=== PATIENT | female | born 1945 | race Caucasian/White ===

== ENCOUNTER 2016-07-30 14:19 | Emergency (ER) | payer MEDICARE, OTHER ==
[~2016-07-30] VITALS: Wt 86.2 kg
[~2016-07-30 14:19] MED LIST: CALCIUM1 CAP PO; FERROUS SULFAT PO; LISINOPRIL10 MG PO; MULTIVITAMIN1 CTB PO; PANTOPRAZOLE40 M1 PO; SUCRALFATE1 GM PO; VITAMIN D400 IU PO
[2016-07-30] MEDS ORDERED: LOVASTATIN10 MG PO (14:59)
[2016-07-30] MEDS ORDERED: FERROUS SULFAT325 MG PO (14:59)
[2016-07-30] MEDS ORDERED: CITALOPRAM10 MG PO (15:00)
[2016-07-30] MEDS ORDERED: NATURE'S BLEND F1 MG PO (15:00)
[2016-07-30] MEDS ORDERED: CLARITIN LIQUI-10 MG PO (15:00)
[2016-07-30] MEDS ORDERED: LISINOPRIL5 MG PO (15:01)
[2016-07-30 15:10] LABS: BASO % 0.3 % (0.0-1.0); HEMATOCRIT 38.8 % (37.0-47.0); HEMOGLOBIN 12.9 g/dl (12.0-16.0); LYMPH # 0.6 10*3/uL (1.3-4.4); LYMPH % 8.1 % (27.0-41.0); MEAN CORPUSCULAR HGB 32.6 pg (27.0-31.0); MEAN CORPUSCULAR HGB CONC 33.2 g/dl (33.0-37.0); MEAN PLATELET VOLUME 10.6 fl (9.6-12.3); MONO % 12.8 % (3.0-9.0); NEUT # 5.8 10*3/uL (2.3-7.9); NEUT % 78.4 % (47.0-73.0); PLATELET COUNT AUTOMATED 310 10*3/uL (130-400); RED BLOOD COUNT 3.96 10*6/uL (4.10-5.10); RED CELL DISTRI WIDTH 13.4 % (0-14.5); WHITE BLOOD COUNT 7.4 10*3/uL (4.8-10.8)
[2016-07-30 15:26] LABS: ALBUMIN 3.7 gm/dl (3.1-4.5); ALKALINE PHOSPHATASE 72 U/L (45-117); BILIRUBIN, TOTAL 0.2 mg/dl (0.2-1.0); BUN 16 mg/dl (7-24); CARBON DIOXIDE 25 mmol/L (21-32); CHLORIDE 102 mmol/L (98-107); EST GLOM FILT AFRICAN AMERICAN > 60 ml/min; GLUCOSE 109 mg/dL (65-99); POTASSIUM 4.1 mmol/L (3.5-5.1); SGOT/AST 21 IU/L (3-35); SGPT/ALT 30 U/L (12-78); SODIUM 138 mmol/L (136-145)
[2016-07-30 16:34] LABS: BILIRUBIN NEGATIVE (NEGATIVE); BLOOD TRACE-INTACT (NEGATIVE); CLARITY CLOUDY (CLEAR); COLOR YELLOW (YELLOW); GLUCOSE NEGATIVE (NEGATIVE); KETONE 2+ (NEGATIVE); LEUKO ESTERASE 2+ (NEGATIVE); NITRITE NEGATIVE (NEGATIVE); PH 5.5 (5.0-9.0); PROTEIN TRACE (NEGATIVE); SPECIFIC GRAVITY >= 1.030 (1.005-1.030)
[2016-07-30 16:44] LABS: BACTERIA 4+; EPITHELIAL CELLS 25-30; RBC 16-20 rbc/hpf (0-2); URINE REFLEX COMMENT YES (NO); WBC TNTC wbc/hpf (0-5)
[2016-07-30] MEDS ORDERED: MACROBID100 M1 PO (16:52)
[2016-07-30] MEDS ORDERED: ZOFRAN ODT4 MG SL (16:52)
== END 2016-07-30 17:15 | disposition home or self-care (01) ==
LOC: ED 14:19
PROVIDERS: Physician Assistant
DX: N30.01 Acute cystitis with hematuria (principal); R11.2 Nausea with vomiting, unspecified; Z79.899 Other long term (current) drug therapy; Z91.018 Allergy to other foods

== ENCOUNTER → 2017-11-06 | Day surgery (SDC) | payer MEDICARE, OTHER ==
[~2017-11-06] VITALS: Ht 175.2 cm; Wt 90.7 kg
[~2017-11-06] MED LIST changes: +CITALOPRAM10 MG PO; +CLARITIN LIQUI-10 MG PO; +FERROUS SULFAT325 MG PO; +LISINOPRIL5 MG PO; +LOVASTATIN10 MG PO; +MACROBID100 M1 PO; +NATURE'S BLEND F1 MG PO; +ZOFRAN ODT4 MG SL; +ZYLOPRIM300 MG PO
--- NOTE | ~2017-11-06 | O ---
[place], [place] OPERATIVE NOTE NAME: NAKITA MITCHELL UNIT #: [id number] ROOM: DOCTOR: MANDY ALLAN MD BIRTHDATE: [birth year] DOS: 11/06/2017 HISTORY OF PRESENT ILLNESS: This is a 72-year-old patient who presented with guaiac positivity, undergoing investigation. PAST SURGICAL HISTORY: Unremarkable. FAMILY HISTORY: Brother with colonic carcinoma. ALLERGIES: ORANGES. PAST MEDICAL HISTORY: Hypertension, hypercholesterolemia, depression, anxiety. SOCIAL HISTORY: Nonsmoker, nonalcohol consumer except in social base. PROCEDURE: Today's procedure part of investigation score panendoscopy and colonoscopy. PREMEDICATION: Propofol. SCOPE: Olympus forward-viewing gastroscope Q10 video. REPORT: After putting the patient in left lateral position and application of lubricant to the scope, the scope was introduced. Thereafter, under direct visualization, I advanced through the length of esophagus without difficulty. Distal esophageal ulceration was identified. Hiatal hernia seen. Gastric pouch was entered. Gastritis noticed. Duodenal bulb, second and third part within normal limits. The patient was extubated after antral biopsy, tolerated the procedure well. IMPRESSION: Distal esophageal ulcer, hiatal hernia. PLAN AND DISCUSSION: I am going to proceed with colonoscopy. PROCEDURE: Today's procedure part of investigation is colonoscopy. PREMEDICATION: Versed and propofol. SCOPE: Olympus forwarding-viewing colonoscope 10L video. REPORT: After putting the patient in left lateral position and application of lubricant to the scope, the scope was introduced; thereafter, under direct visualization, advanced through the length of colon. Retained stool was noticed suboptimal study. Scope was gradually withdrawn from the transverse colon. The patient extubated, tolerated the procedure well. IMPRESSION: Retained stool. This is going to be addressed as outpatient and followup studies. [place], [place] OPERATIVE NOTE NAME: NAKITA MITCHELL UNIT #: [id number] ROOM: DOCTOR: MANDY ALLAN MD BIRTHDATE: [birth year] MANDY ALLAN MD CM:OPRECORD:OPERATIVE NOTE 1131 [id number] MANDY ALLAN MD 11/18/17 1252 interface
[2017-11-06 10:00] VITALS: BP 132/72
[2017-11-06 11:50] VITALS: BP 110/44
[2017-11-06 12:05] VITALS: BP 126/54
[2017-11-06 12:20] VITALS: BP 126/64
== END | disposition home or self-care (01) ==
LOC: SDC 11-02 11:45
DX: K29.50 Unspecified chronic gastritis without bleeding (principal); K44.9 Diaphragmatic hernia without obstruction or gangrene; I10 Essential (primary) hypertension; E78.00 Pure hypercholesterolemia, unspecified; J45.909 Unspecified asthma, uncomplicated; F32.9 Major depressive disorder, single episode, unspecified; F41.9 Anxiety disorder, unspecified; K22.10 Ulcer of esophagus without bleeding; Z80.0 Family history of malignant neoplasm of digestive organs; Z79.899 Other long term (current) drug therapy

== ENCOUNTER → 2019-02-25 | Outpatient (CLI) | payer MEDICARE, OTHER ==
[2019-02-25 11:03] LABS: BASO # 0.1 10*3/uL (0.0-0.1); BASO % 0.7 % (0.0-1.0); EOS # 0.1 10*3/uL (0.0-0.4); EOS % 1.3 % (1.0-4.0); HEMATOCRIT 41.8 % (37.0-47.0); HEMOGLOBIN 13.3 g/dl (12.0-16.0); LYMPH # 2.7 10*3/uL (1.3-4.4); LYMPH % 31.9 % (27.0-41.0); MEAN CELL VOLUME 104.5 fl (81.0-99.0); MEAN CORPUSCULAR HGB 33.3 pg (27.0-31.0); MEAN CORPUSCULAR HGB CONC 31.8 g/dl (33.0-37.0); MEAN PLATELET VOLUME 10.8 fl (9.6-12.3); MONO # 0.6 10*3/uL (0.1-1.0); MONO % 7.5 % (3.0-9.0); NEUT # 4.9 10*3/uL (2.3-7.9); NEUT % 58.2 % (47.0-73.0); PLATELET COUNT AUTOMATED 321 10*3/uL (130-400); RED CELL DISTRI WIDTH 13.7 % (0-14.5); WHITE BLOOD COUNT 8.5 10*3/uL (4.8-10.8)
[2019-02-25 11:24] LABS: ALBUMIN 3.7 gm/dl (3.1-4.5); ALKALINE PHOSPHATASE 72 U/L (45-117); BUN 17 mg/dl (7-24); CHLORIDE 106 mmol/L (98-107); CHOLESTEROL 183 mg/dL (<200); CREATININE 0.74 mg/dL (0.55-1.02); HDL CHOLESTEROL 73 mg/dl (40-60); LDL CHOLESTEROL 96 mg/dL (9-159); POTASSIUM 4.4 mmol/L (3.5-5.1); SGOT/AST 13 IU/L (3-35); SGPT/ALT 25 U/L (12-78); SODIUM 136 mmol/L (136-145); TOTAL PROTEIN 7.4 gm/dL (6.4-8.2); TRIGLYCERIDES 70 mg/dl (<150); VLDL CHOLESTEROL 14 mg/dL (6-40)
== END | disposition home or self-care (01) ==
LOC: LAB 10:32
PROVIDERS: Family Medicine
DX: E78.5 Hyperlipidemia, unspecified (principal); D64.9 Anemia, unspecified; I10 Essential (primary) hypertension; E55.9 Vitamin D deficiency, unspecified

== ENCOUNTER → 2019-09-21 | Outpatient (CLI) | payer MEDICARE, OTHER | END | disposition home or self-care (01) | LOC: LAB 15:59 | DX: M10.9 Gout, unspecified (principal) ==

== ENCOUNTER → 2021-07-18 | Outpatient (CLI) | payer OTHER | END | disposition home or self-care (01) | LOC: MAMMO 14:00 | PROVIDERS: ATTEND Internal Medicine | DX: Z12.31 Encounter for screening mammogram for malignant neoplasm of breast (principal) ==

== ENCOUNTER → 2022-02-14 | Outpatient (CLI) | payer OTHER | LOC: RAD 00:13 | PROVIDERS: ATTEND Internal Medicine Nephrology | DX: M85.80 Other specified disorders of bone density and structure, unspecified site (principal); M81.0 Age-related osteoporosis without current pathological fracture ==

== ENCOUNTER → 2022-08-28 | Outpatient (CLI) | payer OTHER | END | disposition home or self-care (01) | LOC: MAMMO 01:42 | PROVIDERS: ATTEND Internal Medicine Nephrology | DX: Z12.31 Encounter for screening mammogram for malignant neoplasm of breast (principal); N63.11 Unspecified lump in the right breast, upper outer quadrant ==

== ENCOUNTER → 2023-09-09 | Outpatient (CLI) | payer OTHER ==
[2023-09-09 07:15] LABS: BASO % 0.4 % (0.0-1.0); EOS # 0.1 10*3/uL (0.0-0.4); EOS % 1.3 % (1.0-4.0); HEMATOCRIT 40.5 % (37.0-47.0); LYMPH # 3.6 10*3/uL (1.3-4.4); LYMPH % 38.1 % (27.0-41.0); MEAN CELL VOLUME 103.3 fl (81.0-99.0); MEAN CORPUSCULAR HGB 32.9 pg (27.0-31.0); MEAN CORPUSCULAR HGB CONC 31.9 g/dl (33.0-37.0); MEAN PLATELET VOLUME 10.2 fl (9.6-12.3); MONO # 1.1 10*3/uL (0.1-1.0); MONO % 11.7 % (3.0-9.0); NEUT # 4.6 10*3/uL (2.3-7.9); NEUT % 48.2 % (47.0-73.0); PLATELET COUNT AUTOMATED 394 10*3/uL (130-400); RED BLOOD COUNT 3.92 10*6/uL (4.10-5.10); RED CELL DISTRI WIDTH 13.7 % (0-14.5); WHITE BLOOD COUNT 9.5 10*3/uL (4.8-10.8)
[2023-09-09 07:58] LABS: ALKALINE PHOSPHATASE 77 U/L (46-116); BUN 17 mg/dl (9-23); CHLORIDE 103 mmol/L (98-107); CHOLESTEROL 172 mg/dL (<200); FREE T4 0.99 ng/dl (0.89-1.76); LDL CHOLESTEROL 90 mg/dL (9-159); POTASSIUM 4.4 mmol/L (3.4-5.1); TOTAL PROTEIN 6.9 gm/dL (6.0-8.0); TRIGLYCERIDES 84 mg/dl (<150)
[2023-09-09 08:08] LABS: SGPT/ALT < 7 U/L (5-49)
== END | disposition home or self-care (01) ==
LOC: LAB 02:48 → MAMMO 07:30
PROVIDERS: ATTEND Internal Medicine Nephrology
DX: Z12.31 Encounter for screening mammogram for malignant neoplasm of breast (principal); R25.1 Tremor, unspecified; I10 Essential (primary) hypertension; F32.9 Major depressive disorder, single episode, unspecified; E55.9 Vitamin D deficiency, unspecified; E78.5 Hyperlipidemia, unspecified

== ENCOUNTER → 2023-12-07 | Outpatient (CLI) | payer OTHER | END | disposition home or self-care (01) | LOC: US 12-02 13:30 | PROVIDERS: ATTEND Internal Medicine Nephrology | DX: M71.21 Synovial cyst of popliteal space [Baker], right knee (principal); I73.9 Peripheral vascular disease, unspecified ==

== ENCOUNTER → 2024-08-29 | Outpatient (CLI) | payer OTHER | END | disposition home or self-care (01) | LOC: RAD 00:43 | PROVIDERS: ATTEND Internal Medicine Nephrology | DX: Z13.820 Encounter for screening for osteoporosis (principal); N95.9 Unspecified menopausal and perimenopausal disorder ==

== ENCOUNTER → 2024-11-17 | Outpatient (CLI) | payer OTHER | END | disposition home or self-care (01) | LOC: MAMMO 02:15 | PROVIDERS: ATTEND Internal Medicine Nephrology | DX: Z12.31 Encounter for screening mammogram for malignant neoplasm of breast (principal); N63.11 Unspecified lump in the right breast, upper outer quadrant; R92.323 Mammographic fibroglandular density, bilateral breasts ==